=== PATIENT | female | born 1990 | race Caucasian/White ===

== ENCOUNTER 2016-03-21 02:26 | Outpatient (CLI) | payer BC ==
[~2016-03-21] VITALS: Ht 162.6 cm; Wt 86.4 kg
[2016-03-21] MEDS ORDERED: CELEXA 20MG20 MG/TAB PO (02:48)
[2016-03-21] MEDS ORDERED: ZOVIRAX 200MG200 MG PO (02:49)
[2016-03-21 02:50] VITALS: BP 126/81; PULSE 75; TEMP 97.6
[2016-03-21] MEDS ORDERED: PRENATAL1 TA7 PO (02:50)
[2016-03-21] MEDS ORDERED: VALTREX 50500 MG/TAB PO (03:09)
[2016-03-22] MEDS ORDERED: PERCOCET 325 MG1 TA2 PO (14:52)
[2016-03-22] MEDS ORDERED: IBU800 M1 PO (14:52)
== END 2016-03-21 04:15 | disposition home or self-care (01) ==
LOC: LDRO 02:26
DX: O47.1 False labor at or after 37 completed weeks of gestation (principal); Z3A.39 39 weeks gestation of pregnancy; Z87.891 Personal history of nicotine dependence

== ENCOUNTER 2016-03-21 09:16 | Outpatient (CLI) | payer BC ==
[~2016-03-21] VITALS: Ht 10.2 cm; Wt 86.4 kg
[~2016-03-21 09:16] MED LIST: CELEXA 20MG20 MG/TAB PO; PRENATAL1 TA7 PO; VALTREX 50500 MG/TAB PO; ZOVIRAX 200MG200 MG PO
[2016-03-21 09:27] VITALS: BP 124/79; PULSE 79; TEMP 97.4
[2016-03-21 10:40] VITALS: BP 118/73; PULSE 68
[2016-03-22] MEDS ORDERED: PERCOCET 325 MG1 TA2 PO (14:52)
[2016-03-22] MEDS ORDERED: IBU800 M1 PO (14:52)
== END 2016-03-21 10:40 | disposition home or self-care (01) ==
LOC: LDRO 09:16
DX: O47.1 False labor at or after 37 completed weeks of gestation (principal); Z3A.39 39 weeks gestation of pregnancy; Z87.891 Personal history of nicotine dependence

== ENCOUNTER 2016-03-22 06:04 | Inpatient (IN) | payer OTHER, BC ==
[2016-03-22] VITALS (28 sets, daily range): BP systolic 108–134; BP diastolic 57–87; PULSE 62–104; TEMP 97.8–98
[~2016-03-22] VITALS: Ht 162.6 cm; Wt 86.2 kg
[2016-03-22 06:56] LABS: HEMATOCRIT 39.9 % (37.0-47.0); HEMOGLOBIN 13.8 g/dl (12.5-16.0); MEAN CELL VOLUME 88 fl (80.0-100.0); MEAN CORPUSCULAR HEMOGLOBIN 30 pg (27.0-31.0); MEAN CORPUSCULAR HGB CONC 35 g/dl (33.0-37.0); PLATELET COUNT 205 K/mm3 (130-400); RED BLOOD COUNT 4.56 M/mm3 (4.10-5.30); REDCELL DISTRIBUTION WIDTH-CV 13.6 % (11.5-14.5)
[2016-03-22 07:13] LABS: ADD PATHOLOGY DIFF REVIEW NO; WHITE BLOOD COUNT 24.5 K/mm3 (4.8-10.8)
[2016-03-22 07:25] LABS: BAND 12 % (0-10); NEUTROPHILS 85 % (42.0-75.2); PLATELET ESTIMATE NORMAL (NORMAL); TOTAL CELLS COUNTED 100
[2016-03-22] MEDS ORDERED: IBU800 M1 PO (14:52)
[2016-03-22] MEDS ORDERED: PERCOCET 325 MG1 TA2 PO (14:52)
[2016-03-23 00:10] VITALS: BP 116/69; PULSE 83; TEMP 97.7
[2016-03-23 07:30] VITALS: BP 118/81; PULSE 74; TEMP 98.3
[2016-03-23 08:49] LABS: HEMATOCRIT 34.2 % (37.0-47.0); HEMOGLOBIN 11.5 g/dl (12.5-16.0)
== END 2016-03-23 12:30 | disposition home or self-care (01) | DRG 775 ==
LOC: LDRO 06:04 → LDR 06:34 → OB 06:34
PROVIDERS: Obstetrics & Gynecology
PROC: 10E0XZZ Delivery of Products of Conception, External Approach (ICD-10-PCS; principal; 2016-03-22)
PROC: 0KQM0ZZ Repair Perineum Muscle, Open Approach (ICD-10-PCS; 2016-03-22)
PROC: 0UQM0ZZ Repair Vulva, Open Approach (ICD-10-PCS; 2016-03-22)
DX: O77.0 Labor and delivery complicated by meconium in amniotic fluid (principal); O70.1 Second degree perineal laceration during delivery; O70.0 First degree perineal laceration during delivery; Z3A.39 39 weeks gestation of pregnancy; Z37.0 Single live birth
CPT/HCPCS: J2590; J7120